=== PATIENT | female | born 1970 | race Caucasian/White ===

== ENCOUNTER → 2021-11-07 14:32 | Outpatient (CLI) | payer OTHER, SELFPAY ==
--- NOTE | ~2021-11-07 | MR_ITS ---
EXAMINATION: MR ankle RT wo con DATE: 11/07/2021 16:08 INDICATION: Right foot and ankle pain. TECHNIQUE: Magnetic resonance imaging (MRI) of the right ankle was performed without intravenous cont rast. Sequences included sagittal PD-weighted FS FSE, sagittal PD-weighted FSE, coronal PD-weighted F S FSE, coronal PD-weighted FSE, axial PD-weighted FS FSE, and axial PD-weighted FSE. COMPARISON: None. FINDINGS: Medial ankle ligaments: The superficial and deep components of the deltoid ligament are normal. Lateral ankle ligaments: There are changes of lateral ankle sprain characterized by thickening and increased signal intensity involving anterior talofibular ligament, calcaneofibular ligament, and anterior tibiofibular ligament . Posterior talofibular ligament and posterior tibiofibular ligaments are normal. Tendons: The peroneal tendons are normal. The anterior and medial ankle tendons are normal. Achilles tendon is normal. Plantar fascia: Normal. Bones/other: There is a fracture of dorsal distal aspect of the navicular with 2 mm superior displacement of the d istal dorsal fracture fragment. There is a trabecular fracture of distal intermediate cuneiform with low signal fracture line and edema-like marrow signal intensity. There is an osteochondral lesion of medial talar dome with 3 mm subchondral cyst. Fluid: There is a small ankle joint effusion. IMPRESSION: 1. Fractures of navicular and intermediate cuneiform. 2. Osteochondral lesion of medial talar dome. 3. Lateral ankle sprain. 4. Small ankle joint effusion. Reviewed, dictated and finalized at location A.
--- NOTE | ~2021-11-07 | MR_ITS ---
EXAMINATION: MR foot RT wo con DATE: 11/07/2021 16:01 INDICATION: Right foot pain. TECHNIQUE: Magnetic resonance imaging (MRI) of the right foot was performed without intravenous contr ast. COMPARISON: None FINDINGS: Bone alignment is normal. There is a nondisplaced trabecular fracture of intermediate cunei form with low signal fracture line and bone marrow edema. There is a fracture of dorsal distal aspect of navicular with 2 mm displacement and bone marrow edema. There is mild osteoarthritis of first met atarsophalangeal joint and some of the interphalangeal joints. Lisfranc ligament is normal. The flexo r and extensor tendons are normal. IMPRESSION: 1. Fractures of the navicular and intermediate cuneiform. Reviewed, dictated and finalized at location A.
== END ==
PROVIDERS: PCP Physician Assistant Medical; Visit Provider Physician Assistant Medical
DX: M25.571 Pain in right ankle and joints of right foot (principal); M79.671 Pain in right foot; S92.251A Displaced fracture of navicular [scaphoid] of right foot, initial encounter for closed fracture; S92.231A Displaced fracture of intermediate cuneiform of right foot, initial encounter for closed fracture; S93.491A Sprain of other ligament of right ankle, initial encounter; M25.471 Effusion, right ankle
CPT/HCPCS: 73718; 73721

== ENCOUNTER 2023-07-01 09:13 | Outpatient (CLI) | payer OTHER, SELFPAY ==
--- NOTE | ~2023-07-01 | CT_ITS ---
EXAMINATION: CT abdomen pelvis w con DATE: 07/01/2023 09:42 INDICATION: Abdominal pain, unspecified TECHNIQUE: Computed tomography (CT) of the abdomen and pelvis was performed with 100 CC Omnipaque 350 intravenous contrast. Automated exposure control and iterative reconstruction technique were employe d. Exam dose: 382.52 mGy-cm total exam DLP. COMPARISON: 06/10/2023 KUB FINDINGS: Emphysematous changes of the lungs are noted with multiple bilateral bullae. The lung bases are clear of infiltrate or consolidation. Normal heart size. No pericardial or pleural effusion. Very small sliding hiatal hernia. The liver, gallbladder, bile ducts, spleen, pancreas and pancreatic duct as well as adrenal glands ar e unremarkable. There are multiple left renal cysts, largest approximately 2 cm. The kidneys are otherwise unremarkab le. No urinary tract calculus or hydroureteronephrosis. The urinary bladder is relatively evacuated, otherwise unremarkable. Retroverted uterus. There is an IUD with one of the lymph nodes of the IUD penetrating approximately 2.8 mm beyond the an terior margin of the uterine fundus. Normal appendix. No bowel obstruction, bowel wall thickening, pneumatosis or intraperitoneal free air . Diffuse idiopathic skeletal hyperostosis of the thoracic spine. Mild degenerative spurring of the lum bar spine. L5 and S1 limbus vertebrae. Bilateral L5 pars interarticularis defects with minimal grade 1 anterolisthesis at L5-S1. IMPRESSION: 1 Limited the IUD perforates approximate 2.8 mm beyond the anterior margin of the uterin e fundus Retroverted uterus Normal appendix Very small sliding hiatal hernia Emphysematous and bullous changes of the lungs Multiple left renal cysts Reviewed, dictated and finalized at Location A. Reviewed, dictated and finalized at location B. IMPRESSION: 1 Limited the IUD perforates approximate 2.8 mm beyond the anterio r margin of the uterine fundus Retroverted uterus Normal appendix Very small sliding hiatal hernia Emphysematous and bullous changes of the lungs Multiple left renal cysts
== END 2023-07-01 09:14 ==
PROVIDERS: PCP Physician Assistant Medical; Visit Provider Physician Assistant Medical
DX: N85.4 Malposition of uterus (principal); K44.9 Diaphragmatic hernia without obstruction or gangrene; R91.8 Other nonspecific abnormal finding of lung field; N28.1 Cyst of kidney, acquired; T83.39XA Other mechanical complication of intrauterine contraceptive device, initial encounter; Y83.8 Other surgical procedures as the cause of abnormal reaction of the patient, or of later complication, without mention of misadventure at the time of the procedure
CPT/HCPCS: 74177; Q9967

== ENCOUNTER 2023-10-13 16:32 | Outpatient (CLI) | payer OTHER, SELFPAY ==
[2023-10-13 17:30] LABS: CRP < 0.5 mg/dL (<1.0)
[2023-10-15 12:18] LABS: SS-A <1.0 NEG AI (<1.0 NEG); SS-B <1.0 NEG AI (<1.0 NEG)
== END 2023-10-13 16:33 | disposition home or self-care (01) ==
PROVIDERS: PCP Physician Assistant Medical; Visit Provider Internal Medicine Pulmonary Disease
DX: J98.4 Other disorders of lung (principal)
CPT/HCPCS: 36415; 86038; 86039; 86140; 86225; 86235

== ENCOUNTER 2023-10-22 13:02 | Outpatient (CLI) | payer OTHER, SELFPAY ==
--- NOTE | ~2023-10-22 | CT_ITS ---
EXAMINATION:CT diagnostic chest wo con DATE: 10/22/2023 14:18 INDICATION: Emphysema, unspecified. TECHNIQUE: Computed tomography (CT) of the chest was performed without intravenous contrast. Automate d exposure control and iterative reconstruction technique were employed. The dose-length product (DLP ) was 66.94 mGy-cm. COMPARISON: CT abdomen and pelvis 07/01/2023 FINDINGS: There is mild scarring at the lung apices. There are few nodules in the lungs measuring up to 3 mm, likely benign. There is mild emphysema. There is mild scarring in paraspinal right lower lob e. There is mild atelectasis bilaterally. No pleural effusion. The heart size is normal. No pericardi al effusion. Main pulmonary artery is enlarged, consistent with pulmonary arterial hypertension. Ther e are cysts in left kidney measuring up to 2.2 cm. There is moderate thoracic spondylosis. IMPRESSION: 1. Mild emphysema. Reviewed, dictated and finalized at location A. IMPRESSION: 1. Mild emphysema.
--- NOTE | 2023-10-25 09:50 | WPDPFTINT ---
PFT Procedure Performed PFT Procedure Performed Spirometry with Pre/Post Bronchodilator Plethysmography (Lung Vol) Diffusing Cap (DLCO) Flow Vol Loop PFT Interpretation Lung volumes were measured with the body plethysmography method. Lung volumes are unremarkable. Spirometry showed normal expiratory flow rates and a normal FEV1 to FVC ratio 77%. Following administration of a bronchodilator there was no significant increase in expiratory flow rates. Lung diffusion capacity is within normal range at 85% predicted. The flow-volume loop is unremarkable. Impression: Spirometry, lung volumes, and lung diffusion capacity all within the normal range.
--- NOTE | 2023-10-25 10:01 | WPDSIXMINUTE ---
Six Minute Walk Procedure Procedure Performed Pulmonary Stress Test (6 min walk) Six Minute Walk Six Minute Walk: This 6 minute walk test was carried out with the patient breathing ambient air. The pre walk baseline oxyhemoglobin saturation was 99%. The patient walked walked 2200 ft with no stops during testing. During the walk the oxyhemoglobin saturation remained in the range of 95% to 100%. Impression: No evidence of oxyhemoglobin desaturation on this test.
== END 2023-10-22 13:03 | disposition home or self-care (01) ==
PROVIDERS: PCP Physician Assistant Medical; Visit Provider Internal Medicine Pulmonary Disease
DX: J98.4 Other disorders of lung (principal); J43.9 Emphysema, unspecified
CPT/HCPCS: 71250; 94060; 94618; 94726; 94729

== ENCOUNTER 2023-12-20 18:05 | Emergency (ER) | payer OTHER, SELFPAY ==
[2023-12-20 18:27] VITALS: BP 152/58; PULSE 83; RESP 18; TEMP 36.5; O2SAT 99
--- NOTE | 2023-12-20 19:04 | ED.BACK ---
HPI - Back Pain/Injury General Chief Complaint: Back Pain/Injury Stated Complaint: Cough / Lower back pain Time Seen by Provider: 12/20/23 19:09 Source: patient, RN notes reviewed and old records reviewed Mode of arrival: ambulatory Limitations: no limitations History of Present Illness HPI Narrative: patient presents with complaints of 2 week history of cough that is worsening. She reports the cough is sometimes productive, worse with activity. She reports that she now has left-sided back pain that is worse with coughing. This started a few days ago. She reports pain is always present, but is definitely worse when she coughs. She took Aleve without much relief. She reports some chills and sweats, no fever. She is not in any distress, including respiratory distress Related Data Home Medications Medication Instructions Recorded Confirmed aspirin 81 mg tablet,delayed 81 mg PO DAILY 10/15/21 12/20/23 release (Adult Low Dose Aspirin) Allergies Allergy/AdvReac Type Severity Reaction Status Date / Time No Known Allergies Allergy Verified 12/20/23 18:37 Review of Systems Review of Systems: All systems reviewed & are unremarkable except as noted in HPI and below Constitutional: Constitutional: Reports as per HPI, Reports no additional constitutional complaints, Reports chills and Reports lethargy ENT: Reports system reviewed and no additional complaints, except as documented Cardiovascular: Cardiovascular: Reports no additional cardiovascular complaints Respiratory: Respiratory: Reports no additional respiratory complaints, Reports change in phlegm color, Reports chest congestion, Reports cough and Reports pain with cough Gastrointestinal: Gastrointestinal: Reports no additional gastrointestinal complaints Musculoskeletal: Musculoskeletal: Reports as per HPI and Reports back pain PMFSH Past Medical History Medical History Anxiety and depression Carotid artery stenosis right side occluded, follows vascular, has carotid artery ultrasounds every 2 years Closed navicular fracture of right ankle Dyslipidemia Emphysema of lung Hyperglycemia Surgical History Surgical History H/O section History of myomectomy 2001 Family History Family History Other Cancer Hypertension Social History Social History Smoking status: Never smoker Alcohol intake: never Substance use: never Lack of Transportation: No Lack of Food: Never True Current Housing: I Have Housing Concerned About Future Housing: No Difficulty Paying Gas/Electric Bills: No Difficulty Paying for Meds: No Currently Unemployed: No Education: Master's Degree or Higher Difficulty w/ Childcare or Family Care: No Living arrangements: with family Occupation/Education: occupation Gender identity (if verbalized by the patient): Female Sexual Orientation (if Verbalized by the Patient): Straight or Heterosexual Comments At the time of my signature, I reviewed and agree with the nursing past medical, surgical, social, and family history. There is no relevant family history pertinent to the patient complaint. Exam Const: General: cooperative, no acute distress, alert and awake Orientation/consciousness: oriented to person, oriented to place and oriented to time HENMT: Head: normal to inspection Resp: Effort & Inspection: normal respiratory effort and able to speak in complete sentences Auscultation: clear to auscultation bilaterally, no crackles, no rales, no rhonchi and no wheezes Other: wet, congested sounding cough Cardio: Palpation: normal PMI Rate: regular rate Rhythm: regular rhythm Heart sounds: S1 normal heart sound present and S2 normal heart sound present Back/Spine/Pelvis: Cervical Spine: cervical ROM normal and No Cervical spine tenderness Thoracic/Lumbar Spine: No thoracic spinal tenderness and No lumbar spinal tenderness Neuro: General: oriented to person, oriented to place and oriented to time Cranial nerves: Yes CN's II-XII intact bilaterally Psych: Appearance: grossly normal Thought process: Normal thought process present Insight: Good insight present (Psych) Judgement: Good judgement present (Psych) Course Course Level of Care: Express Care Visit Vital Signs Vital signs: Vital Signs Temperature 97.7 F 12/20/23 18:27 Pulse Rate 83 12/20/23 18:27 Respiratory Rate 18 12/20/23 18:27 Blood Pressure 152/58 H 12/20/23 18:27 Pulse Oximetry 99 12/20/23 18:27 Oxygen Delivery Room Air 12/20/23 18:27 Temperature 97.7 F 12/20/23 18:27 Pulse Rate 83 12/20/23 18:27 Respiratory Rate 18 12/20/23 18:27 Blood Pressure 152/58 H 12/20/23 18:27 Pulse Oximetry 99 12/20/23 18:27 Oxygen Delivery Room Air 12/20/23 18:27 Reviewed MDM - Back Pain/Injury MDM Narrative Medical decision making narrative: patient with significant respiratory history. Treat with a Z-Colby, prednisone, bronchodilators for probable pneumonia. Back pain likely caused by excessive coughing. Follow with primary care provider. Emergency department for new or worse symptoms. Patient is nontoxic appearing and stable for discharge home Discharge instructions reviewed with patient, as well as provided in writing per nursing staff. The instructions also include specific and strict return/GO TO THE ER as well as f/u information. All questions have been answered, and the patient deny any further questions with discharge and discharge plan. Some parts of this dictation were generated by voice recognition software and may contain typographical and/or grammatical inaccuracies. Differential Diagnosis Differential diagnosis: Likely other (Bronchitis, upper respiratory infection, pneumonia) Medical Records Attestation: I reviewed the patient's medical records. Discharge Plan Discharge Clinical Impression: Pneumonia Qualifiers: Pneumonia type: due to unspecified organism Laterality: unspecified laterality Lung location: unspecified part of lung Qualified Code(s): J18.9 - Pneumonia, unspecified organism Patient Disposition: Home, Self-Care Condition: Stable Instructions: Antibiotic Form, Community Acquired Pneumonia (ED) Prescriptions: New prednisone 50 mg tablet 50 mg PO DAILY Qty: 5 0RF albuterol sulfate [Ventolin HFA] 90 mcg/actuation HFA aerosol inhaler 2 puff inhalation QID PRN (Reason: shortness of breath or wheezing) Qty: 8.5 0RF azithromycin 250 mg tablet See Rx Instructions PO .COMPLEX Qty: 6 0RF Rx Instructions: For 250 mg dose pack: take 500 mg today (day 1), then 250 mg for 4 days (days 2-5) No Action aspirin [Adult Low Dose Aspirin] 81 mg tablet,delayed release (DR/EC) 81 mg PO DAILY atorvastatin 10 mg tablet 10 mg PO QHS Qty: 90 0RF Follow-up/Referrals: Tania Villafana PA-C [Primary Care Provider] - 2 Weeks Time of Disposition: 19:18
== END 2023-12-20 19:21 | disposition home or self-care (01) ==
PROVIDERS: Emergency Provider Nurse Practitioner Family; PCP Physician Assistant Medical
DX: J18.9 Pneumonia, unspecified organism (principal); I65.21 Occlusion and stenosis of right carotid artery; E78.5 Hyperlipidemia, unspecified; J43.9 Emphysema, unspecified; Z79.82 Long term (current) use of aspirin
CPT/HCPCS: 99213; G0463

== ENCOUNTER 2024-10-16 15:30 | Outpatient (RCR) | payer OTHER, SELFPAY ==
--- NOTE | 2024-07-26 17:19 | PTOPEVAL1 ---
Assessment and note entered by Bibiana Burnett, PT Evaluation Information Assessment Status Evaluation Diagnosis Pain in shoulder unspec, paraesthesia of skin ICD-10 Condition Codes (PT) Pain in Thoracic Spine M54.6,Radiculopathy, cervical M54.13,Pain in left shoulder M25.512 Other ICD-10 Condition Codes ( abnormal posture, postural weakness PT) Onset ~ months Subjective Information Pt reports last few months her shoulder pain has been radiating down to the thumb. Sometimes will feel tingling and no pain in the back, sometimes both. Tinling is off and on all day and night. Difficulty falling asleep on left side. Pt is a teacher, left hand dominant had therapy years ago for same shoulder issue but didnt have N/T symptoms at the time Reported Pain Level Pain Score 4: Self Report Assessment PT Clinical Summary Pt presents with complaints of left shoulder pain that has progressed over time to higher and more consistent pain levels. She also reports she will have numbness/tingling down arm into the thumb of the LUE at times that follows a C6 dermatomal pattern. Neurological screening shows no deficits in strength in LUE as of yet. She also demonstrates decreased cervical and thoracic ROM likely causing impingement in both leading to her posterior shoulder pain as well as the radicular symptoms. Pt will benefit from physical therapy in order to address ROM, alignment, pain, and radicular symptoms in order to meet her goals and return to PLOF without pain. Plan of Care Interventions Electrical Stimulation,Hot Pack/Cold Pack,Manual Therapy,Mechanical Traction,Neuro Re-education, Patient/Caregiver Education,Therapeutic Activities ,Therapeutic Exercise,Self-Care/Home Management, Ultrasound,Other Other Interventions Taping, bracing PT Services Indicated Yes Treatment Frequency and 1-2x weekly x 10 visits Duration These treatments will address the objective and functional deficits as defined above. The patient will be advanced safely and appropriately in order for the patient to progress towards his/her prior level of function. Additional exercises will be introduced and as well as a comprehensive home exercise program upon discharge, if needed, ?to ensure carryover of functional gains achieved in the clinic. This treatment plan has been reviewed and agreement upon by the patient.
--- NOTE | 2024-07-26 17:19 | OPREHPOC ---
Outpatient Therapy Plan of Care This is a Multidisciplinary Plan of Care that may contain components documented by all disciplines (PT, OT, and ST.) PT Problem 1 PT Problem #1 Knowledge Deficit PT Goal 1 Goal / Goal Update Pt will be independent in HEP Pt will verbalize understanding of diagnosis and prognosis Target Visit 10 PT Problem 2 PT Problem #2 Pain PT Goal 1 Goal / Goal Update Pt will report lowest pain rating at 0/10 to show improvement in overall discomfort Target Visit 5 PT Goal 2 Goal / Goal Update Pt will report greatest pain level at 3/10 or less to improve ADLs and activities Target Visit 10 PT Problem 3 PT Problem #3 Impaired Sensation PT Goal 1 Goal / Goal Update Pt will report reduction in N/T in frequency, intensity, or by centralization Target Visit 5 PT Goal 2 Goal / Goal Update Pt will report resolution of radicular symptoms Target Visit 10 PT Problem 4 PT Problem #4 Impaired Range of Motion PT Goal 1 Goal / Goal Update Pt will demonstrate L side motion equal to right side motion cervical spine to reduce impingement Target Visit 10 PT Goal 2 Goal / Goal Update Pt will demonstrate thoracic ROM of 50% or greater in rotation and lateral flexion bilaterally for improved support and offloading of cervical spine Target Visit 10
--- NOTE | 2024-09-07 15:21 | OPREHPOC ---
Outpatient Therapy Plan of Care This is a Multidisciplinary Plan of Care that may contain components documented by all disciplines (PT, OT, and ST.) PT Problem 1 PT Problem #1 Knowledge Deficit PT Goal 1 Goal / Goal Update Pt will be independent in HEP Pt will verbalize understanding of diagnosis and prognosis Target Visit 10 Progress Met PT Problem 2 PT Problem #2 Pain PT Goal 1 Goal / Goal Update Pt will report lowest pain rating at 0/10 to show improvement in overall discomfort Target Visit 5 Progress Met PT Goal 2 Goal / Goal Update Pt will report greatest pain level at 3/10 or less to improve ADLs and activities Target Visit 10 Progress Met PT Problem 3 PT Problem #3 Impaired Sensation PT Goal 1 Goal / Goal Update Pt will report reduction in N/T in frequency, intensity, or by centralization Target Visit 5 Progress Met PT Goal 2 Goal / Goal Update Pt will report resolution of radicular symptoms Target Visit 10 Progress Not Met PT Problem 4 PT Problem #4 Impaired Range of Motion PT Goal 1 Goal / Goal Update Pt will demonstrate L side motion equal to right side motion cervical spine to reduce impingement Target Visit 10 Progress Met PT Goal 2 Goal / Goal Update Pt will demonstrate thoracic ROM of 50% or greater in rotation and lateral flexion bilaterally for improved support and offloading of cervical spine Target Visit 10 Progress Met PT Problem 5 PT Problem #5 Impaired Functional ADLs PT Goal 1 Goal / Goal Update Pt will return to full work out regiment progressing to normal intensity without N/T or pain Target Visit 20 PT Goal 2 Goal / Goal Update Pt will report confidence in her ability to independently manage flare ups related to stress for her left shoulder blade pain. Target Visit 20
--- NOTE | 2024-09-07 15:22 | PTOPEVAL1 ---
Assessment and note entered by Bibiana Burnett, PT Evaluation Information Assessment Status Progress Diagnosis Pain in shoulder unspec, paraesthesia of skin ICD-10 Condition Codes (PT) Pain in Thoracic Spine M54.6,Radiculopathy, cervical M54.13,Pain in left shoulder M25.512 Other ICD-10 Condition Codes ( abnormal posture, postural weakness PT) Onset ~ months Subjective Information Reports feeling 95% overall Tingling less often and less intense Once has tried to return to recreational fitness and was sore after but no increased pain (with reduced weight) Sleeping on left side will have tingling and has to readjust. Feels like repositioning the shoulder helps. Tilting head back causes tingling Reported Pain Level Pain Score 0: Self Report Assessment PT Clinical Summary Pt has attended therapy consistently for shoulder/ neck pain and radiculopathy. Pt reports feeling 95 % improved though still has tingling at times such as when laying down to sleep at night. She also has yet to return to work or return to high level recreational fitness consistently and voices concern she will have a flare up and the pain will return. She does show improvement in ROM though thoracic ROM left is still tight with testing and palpation. She also shows rotated T4 that corrects with mobilization and stiffness in the lower cervical spine likely a counter rotation to balance T4. Pt will benefit from additional therapy focusing heavily on strengthening in appropriate thoracic alignment, high level UE activities related to fitness regiment, and educate and empower patient to be able to maintain progress and manage minor flare ups independently . Plan of Care Interventions Electrical Stimulation,Hot Pack/Cold Pack,Manual Therapy,Mechanical Traction,Neuro Re-education, Patient/Caregiver Education,Therapeutic Activities ,Therapeutic Exercise,Self-Care/Home Management, Ultrasound,Other Other Interventions Taping, bracing PT Services Indicated Yes Treatment Frequency and 1x weekly x 6 visits Duration These treatments will address the objective and functional deficits as defined above. The patient will be advanced safely and appropriately in order for the patient to progress towards his/her prior level of function. Additional exercises will be introduced and as well as a comprehensive home exercise program upon discharge, if needed, ?to ensure carryover of functional gains achieved in the clinic. This treatment plan has been reviewed and agreement upon by the patient.
--- NOTE | 2024-10-16 16:06 | PTOPDC ---
Assessment and note entered by Bibiana Burnett, PT Evaluation Information Assessment Status Discharge Diagnosis Pain in shoulder unspec, paraesthesia of skin ICD-10 Condition Codes (PT) Pain in Thoracic Spine M54.6,Radiculopathy, cervical M54.13,Pain in left shoulder M25.512 Other ICD-10 Condition Codes ( abnormal posture, postural weakness PT) Onset ~ months Subjective Information Pt reports not much tingling and numbness in the UE in the last week. States when she corrects her posture this fixes the N/T. Is not even daily anymore Is getting back into her workout routine, has been increasing weight slowly without issue. Reports hasn't noticed tilting her head back causing tingling in a while Reports 99% improvement overall Reported Pain Level Pain Score 0: Self Report Assessment PT Clinical Summary Pt reports feeling 99% improved overall with very minimal and infrequent tingling in the LUE. Pt has met all her goals, her ROM is WNL, and she has been able to return to her high level fitness activities without increased symptoms. She has been educated in self-maintenance of her progress and is happy with her results. thus she is being discharged for completion of plan of care. Plan of Care PT Services Indicated No
== END 2024-10-16 16:11 | disposition home or self-care (01) ==
LOC: ANHHIPT 15:30
PROVIDERS: PCP Physician Assistant Medical; Visit Provider Physician Assistant Medical
DX: M25.519 Pain in unspecified shoulder (principal); R20.2 Paresthesia of skin
CPT/HCPCS: 97014; 97110; 97112; 97140; 97161; 97530; 97750; G0283

== ENCOUNTER 2025-01-12 13:15 | Outpatient (RCR) | payer OTHER, SELFPAY ==
--- NOTE | 2024-12-08 16:37 | PTOPEVAL1 ---
Assessment and note entered by Bibiana Burnett, PT Evaluation Information Assessment Status Evaluation Diagnosis Radiculopathy, lumbar region ICD-10 Condition Codes (PT) Radiculopathy, lumbar region M54.16,Radiculopathy, sacral and sacrococcygeal region M54.18,Weakness R53.1 Subjective Information worst in the morning or after prolonged position left leg electric is less now doppler r/u clot NSAIDs and pred didn't seem to do much Walks 2 miles once daily and sometimes feels like hip is going to give out. Sometimes is fine, and sometimes has issues with this Crossing leg over opposite leg ot put on sock is bothersome Sometimes will have lumbar pain and have difficulty straightening upright Reported Pain Level Pain Score 5,0: Self Report Assessment PT Clinical Summary Pt presents with complaints of pain in left buttock that at times radiates down inner thigh and lower leg. Reports is more painful with movement after prolonged positioning, with crossing LLE over RLE, and at times with recreational walking. Evaluation shows LLE length longer than right placing pressure on the left innominate and hip musculature, tight piriformis muscle likely effecting the sciatic nerve, and decreased lumbopelvic core strength LLE>RLE. Pt was educated on this today and provided with information on acquisition and application of heel lifts for R shoe to assist in offloading left side and reduce pain. Pt will benefit from therapy to address deficits and continue progression of alignment and stabilization of lumbopelvic core to reduce pain and meet patient goals. Plan of Care Interventions Electrical Stimulation,Hot Pack/Cold Pack,Manual Therapy,Neuro Re-education,Patient/Caregiver Education,Therapeutic Activities,Therapeutic Exercise,Self-Care/Home Management,Ultrasound, Other Other Interventions Taping PT Services Indicated Yes Treatment Frequency and 2x weekly x 10 visits Duration These treatments will address the objective and functional deficits as defined above. The patient will be advanced safely and appropriately in order for the patient to progress towards his/her prior level of function. Additional exercises will be introduced and as well as a comprehensive home exercise program upon discharge, if needed, ?to ensure carryover of functional gains achieved in the clinic. This treatment plan has been reviewed and agreement upon by the patient.
--- NOTE | 2024-12-08 16:37 | OPREHPOC ---
Outpatient Therapy Plan of Care This is a Multidisciplinary Plan of Care that may contain components documented by all disciplines (PT, OT, and ST.) PT Problem 1 PT Problem #1 Knowledge Deficit PT Goal 1 Goal / Goal Update Pt will be independent in HEP Pt will verbalize understanding of diagnosis and prognosis Target Visit 10 PT Problem 2 PT Problem #2 Pain PT Goal 1 Goal / Goal Update Pt will report greatest pain level at 3/10 or less to improve ADLs and activities Target Visit 5 PT Goal 2 Goal / Goal Update Pt will report resolution of pain to return to PLOF Target Visit 10 PT Problem 3 PT Problem #3 Impaired Strength PT Goal 1 Goal / Goal Update Pt will demonstrate equal strength BLEs with testing PT Goal 2 Goal / Goal Update Pt will demonstrate strength of 4+/5 in lumbopelvic core musculature to aid in stabilization and support. Target Visit 10
--- NOTE | 2025-01-12 15:18 | PTOPDC ---
Assessment and note entered by Bibiana Burnett, PT Evaluation Information Assessment Status Discharge Diagnosis Radiculopathy, lumbar region ICD-10 Condition Codes (PT) Radiculopathy, lumbar region M54.16,Radiculopathy, sacral and sacrococcygeal region M54.18,Weakness R53.1 Subjective Information Pt reports no electric signals down the leg and walking in the morning is fine. Work out routines are doing well. No issues with prolonged positions Feels pretty confident is at 100% Crossing over legs to put socks on is resolved as well. Has two layers in her heel lift and is doing well Reported Pain Level Pain Score 0,0: Self Report Assessment PT Clinical Summary Pt reports feeling pretty confident she is 100% improved. She hasn't had pain in a week and last time her pain was highest a 2/10. She has been able to return to all activities without pain including high level walking and work out regiment . She shows improved alignment of the pelvis and is consistently using her heel lifts to account for leg length discrepancy. She also shows improved lumbopelvic core strength overall. She does still have some slight tightness in the left hip joint, but has been educated in how to continue to address this independently. Thus patient is being discharged from therapy for completion of her plan of care. Plan of Care PT Services Indicated No
== END 2025-01-12 15:24 | disposition home or self-care (01) ==
LOC: ANHHIPT 13:15
PROVIDERS: PCP Physician Assistant Medical; Visit Provider Nurse Practitioner Family
DX: M54.16 Radiculopathy, lumbar region (principal)
CPT/HCPCS: 97014; 97110; 97112; 97140; 97161; 97750; G0283